=== PATIENT | male | born 1970 | race Caucasian/White ===

== ENCOUNTER 2024-07-14 17:59 | Emergency (ER) | payer OTHER ==
[~2024-07-14 17:59] MED LIST: Iopamidol-370 76% 500 ML MDV (1 ML CHARGE) ONE
[2024-07-14] MEDS ORDERED: Sodium Chloride 0.9% 100 ML ONE (18:14)
[2024-07-14] MEDS ORDERED: CEFAZOLIN 2 GM VIAL ONE (18:14)
[2024-07-14] MEDS ORDERED: Boostrix 0.5 ML (Tdap) VIAL (>/=7 yrs of age) ONE (18:14)
[2024-07-14] MEDS ORDERED: fentaNYL 50 mcg/mL 1 mL Vial ONE (18:44)
[2024-07-14] MEDS ORDERED: Diazepam 10 MG/2 ML SYRINGE ONE (18:44)
[2024-07-14 18:54] LABS: #Basophils 0.03 10x3/uL (0.0-0.2); %Basophils 0.4 % (0.0-1.0); %Eosinophils 4.2 % (0.0-10.0); %Lymphocytes 24.2 % (21.0-51.0); %Monocytes 12.3 % (0.0-10.0); %Neutrophils 58.2 % (42.0-75.0); Hematocrit 23.8 % (42.0-52.0); Hemoglobin 7.4 g/dL (14.0-18.0); Mean Corpuscular HGB CONC 31.1 g/dL (32.0-36.0); Mean Corpuscular Hemoglobin 28.2 pg (27.0-31.0); Mean Corpuscular Volume 90.8 fL (78.0-98.0); Mean Platelet Volume 9.1 fL (7.4-10.4); Platelet Count 359 10x3/uL (130-400); Red Blood Cell (RBC) Count 2.62 mill/uL (4.70-6.10)
[2024-07-14] MEDS ORDERED: Lidocaine 1% w/Epinephrine 1:100K 20 ML VIAL ONE (19:06)
[2024-07-14 19:13] LABS: ALT (SGPT) 18 U/L (8-55); AST (SGOT) 12 U/L (5-34); Albumin 2.7 g/dL (3.5-5.0); Alkaline Phosphatase 85 U/L (40-110); Anion Gap 12 mmol/L (10-20); BUN (Urea Nitrogen) 12 mg/dL (8.4-25.7); Bilirubin, Total 0.2 mg/dL (0.2-1.2); Calc. Creatinine Clearance 0 mL/min (70-130); Carbon Dioxide 26 mmol/L (22-29); Chloride 103 mmol/L (98-107); Estimated GFR 40; Globulin 2.3 g/dL (2.4-3.5); Glucose 82 mg/dL (70-105); Sodium 138 mmol/L (136-145)
[2024-07-14] MEDS ORDERED: HYDROcodone/Acetaminophen 5/325 mg Tablet ONE ×3 (20:19→23:31)
[2024-07-15 00:15] LABS: Hematocrit 26.9 % (42.0-52.0); Hemoglobin 8.5 g/dL (14.0-18.0)
== END 2024-07-15 00:40 | disposition home or self-care (01) ==
LOC: EEVIPCON 17:59 → ERS 17:59
DX: S21.311A Laceration without foreign body of right front wall of thorax with penetration into thoracic cavity, initial encounter (principal); D64.9 Anemia, unspecified; I10 Essential (primary) hypertension; X99.1XXA Assault by knife, initial encounter; Z23 Encounter for immunization
CPT/HCPCS: 12002; 36415; 36430; 71045; 71260; 74177; 80053; 85025; 86850; 86900; 86901; 90471; 90715; 93005; 96374; 96375; G0390; J3010; J3360; P9016; Q9967